=== PATIENT | female | born 1985 | race Caucasian/White ===

== ENCOUNTER → 2020-12-12 | Outpatient (CLI) | payer OTHER ==
--- NOTE | 2020-12-12 17:08 | RAD ---
EXAM: Pelvic sonogram. HISTORY: Pelvic pain. TECHNIQUE: Transabdominal and transvaginal sonographic imaging the pelvis was performed. COMPARISON: None. FINDINGS: The uterus is normal in size. The endometrial stripe is normal in thickness. The ovaries ar e normal in size and demonstrate normal blood flow. There is trace pelvic free fluid. This is within physiologic limits. IMPRESSION: 1. Trace pelvic free fluid, within physiologic limits for a premenopausal female. 2. Otherwise, unremarkable pelvic sonogram. Electronically signed by: Falguni Perez MD (12/12/2020 5:05 PM) [id number]
== END ==
LOC: US 16:22
PROVIDERS: ATTEND Specialist
DX: N70.93 Salpingitis and oophoritis, unspecified (principal); R10.2 Pelvic and perineal pain
CPT/HCPCS: 76830; 76856